=== PATIENT | female | born 2005 | race Caucasian/White ===

== ENCOUNTER 2025-10-19 14:47 | Emergency (ER) | payer BC, SELFPAY ==
--- NOTE | 2025-10-19 15:00 | DI.RAD_ITS ---
Exam(s) XR WRIST LT COMPLETE EXAM: XR WRIST LT COMPLETE CLINICAL HISTORY: hyperextension, pain. TECHNIQUE: 2D digital imaging was performed. COMPARISON: No exams were available for comparison FINDINGS: 3 views No evidence of acute fracture or dislocation nor significant ulnar variance. Bone density normal. No osseous lesions. IMPRESSION: No acute osseous findings in the wrist. DATA REPOSITORY: RADIATION DOSE DELIVERED:
--- NOTE | 2025-10-19 15:08 | ED.GENADUL_ITS ---
Discharge Plan Disposition Patient Disposition: Home Condition: Stable Discharge Details Clinical Impression: Left wrist sprain Primary Care Provider: Unknown,Unknown ED Provider: Lobito Yarbrough Discharge Instructions Instructions: Wrist Sprain ED Additional Instructions: Please take ibuprofen 600 mg by mouth every 6-8 hours as needed for pain for the next few days. Use wrist splint for immobility over the next 1 to 2 weeks. Please follow-up with your primary care physician. Follow-up with orthopedics should pain persist over the next 1 week. Return to the emergency department immediately for any worsening or new concerning symptoms. Stand Alone Forms: Portal Information Referrals: [facility] [Provider Group] HPI General Date/Time Provider Initiated Documentation: 10/19/25 15:01 . Related Data Allergies Allergy/AdvReac Type Severity Reaction Status Date / Time No Known Allergies Allergy Unverified 10/19/25 14:59 General Stated Complaint: Orthopedic MADDIE: 4 Course Vital Signs Vital signs: Oxygen Delivery Method Room Air 10/19/25 14:55 Oxygen Flow Rate 0 10/19/25 14:55 Pain Level 9 10/19/25 14:55 Medical Decision Making ASSESSMENT AND PLAN Initial Assessment: 20-year-old female with left wrist pain after falling off bed and hyperextending wrist 3 days ago. Differential Diagnosis: Left wrist fracture versus sprain ED Course: - X-ray of left wrist obtained, interpreted by radiology: No acute osseous findings in the wrist. - Padded fiberglass volar wrist splint applied by me. Patient neurovascular intact post splint application. - Usual and customary discharge instructions were reviewed with the patient. Clinical Impression: - Left wrist sprain Follow-Up: Orthopedic follow-up if pain persists. Patient Education: Discussed wrist splint options and insurance coverage. This document was written with the assistance of [email or web address]. The patient consented to its use. PFS All Active Problems (Updated 10/19/25 @ 15:48 by Lobito Yarbrough MD) Left wrist sprain (Acute) Social History Smoking/Tobacco Use Status: Never Smoking risk assessment performed?: Yes Alcohol Intake: never Substance use type: does not use Do you feel safe at home: Yes Do you feel safe in your relationship?: Yes
[2025-10-19 16:08] VITALS: BP 108/67; PULSE 74; RESP 16; O2SAT 98
== END 2025-10-19 16:10 | disposition home or self-care (01) ==
PROVIDERS: Emergency Provider Student in an Organized Health Care Education/Training Program
DX: S63.502A Unspecified sprain of left wrist, initial encounter (principal); W06.XXXA Fall from bed, initial encounter
CPT/HCPCS: 99283 ×2; 29125; 73110